=== PATIENT | male | born 1985 | race Caucasian/White ===

== ENCOUNTER 2018-08-07 09:17 | Emergency (ER) | payer OTHER ==
[2018-08-07 09:41] VITALS: BP 133/73; PULSE 91; TEMP 98.6; BMI 29.6
--- NOTE | 2018-08-07 10:25 | PDOC ---
History of Present Illness - General Chief Complaint: Rash Stated Complaint: RASH Time Seen by Provider: 08/07/18 09:45 History Source: Patient, Significant Other Exam Limitations: Language Barrier - History of Present Illness Initial Comments: 08/07/18 10:14 Pt is a 32yo M with no significant PMH presenting today with rash. Pt said that 5 days ago on Thursday he started having fevers high as 101, chills, and body aches. He saw his PMD 2 days ago and was told he had the flu but was outside the treatment window. Rash started on the face on and has since spread down his back and chest to his arms and legs. Rash looks like pimples, is "a little" itchy and "a little" painful. He denies fever, chills, arthralgia, myalgia, headache, neck stiffness, abdominal pain, n/v/d. Says urine is dark and stool is dark. States he had Shingles 2 years ago and has been treated. Has had vaccination when he was younger but is unsure as to which vaccinations he received. PMD: Kaushik PMH: none Meds: none PSH: none Allergies: nkda Past History - Past Medical History Allergies/Adverse Reactions: Allergies Allergy/AdvReac Type Severity Reaction Status Date / Time No Known Allergies Allergy Verified 03/23/18 19:55 Home Medications: Ambulatory Orders Valacyclovir HCl [Valtrex -] 1,000 mg PO TID #21 tablet 08/07/18 COPD: No - Immunization History Immunization Up to Date: Yes - Suicide/Smoking/Psychosocial Hx Smoking History: Never smoked Have you smoked in the past 12 months: No Hx Alcohol Use: No Drug/Substance Use Hx: No Review of Systems - Review of Systems Constitutional: No: Chills, Fever, Weakness HEENTM: No: Eye Pain, Ear Pain, Nose Pain, Nose Congestion, Throat Pain Respiratory: No: Cough, Shortness of Breath Cardiac (ROS): No: Chest Pain, Lightheadedness, Palpitations, Syncope ABD/GI: Yes: See HPI, Tarry Stools. No: Constipated, Diarrhea, Nausea, Rectal Bleeding, Vomiting, Indigestion : Yes: See HPI, Other (dark urine). No: Burning, Dysuria, Flank Pain Musculoskeletal: No: Back Pain, Joint Pain, Muscle Pain, Muscle Weakness Integumentary: Yes: See HPI Neurological: No: Headache, Numbness, Tingling, Tremors, Weakness *Physical Exam - Vital Signs Last Vital Signs Temp Pulse Resp BP Pulse Ox 98.6 F 91 H 16 133/73 100 08/07/18 09:37 1218 09:37 08/07/18 09:37 08/07/18 09:37 08/07/18 09:37 - Physical Exam General Appearance: Yes: Nourished, Appropriately Dressed. No: Apparent Distress HEENT: positive: EOMI, LEELEE, TMs Normal, Pharynx Normal Neck: positive: Trachea midline, Supple. negative: Lymphadenopathy (R), Lymphadenopathy (L) Respiratory/Chest: positive: Lungs Clear, Normal Breath Sounds. negative: Crackles, Rales, Rhonchi, Stridor, Wheezing Cardiovascular: positive: Regular Rhythm, Regular Rate, S1, S2. negative: Edema , JVD, Murmur Vascular Pulses: Carotid (R): 2+, Carotid (L): 2+, Dorsalis-Pedis (R): 2+, Doralis-Pedis (L): 2+ Gastrointestinal/Abdominal: positive: Normal Bowel Sounds. negative: Distended , Guarding, Rebound, Tenderness Rectal Exam: positive: normal rectal tone. negative: melena, hemorrhoids Musculoskeletal: negative: CVA Tenderness Extremity: positive: Normal Capillary Refill Integumentary: positive: Normal Color, Dry, Warm, Swelling, Other (multiple raised erythematous papules not ttp, some have clear vesicles. no excoration lema. ) Neurologic: positive: customer professional II-XII NML intact, Fully Oriented, Alert, Normal Mood/ Affect, Normal Response, Motor Strength 5/5. negative: Sensory Deficit Moderate Sedation - Procedure Monitoring Vital Signs: Procedure Monitoring Vital Signs Temperature 98.6 F 08/07/18 09:37 Pulse Rate 91 H 08/07/18 09:37 Respiratory Rate 16 08/07/18 09:37 Blood Pressure 133/73 08/07/18 09:37 O2 Sat by Pulse Oximetry (%) 100 08/07/18 09:37 ED Treatment Course - LABORATORY CBC & Chemistry Diagram: 08/07/18 10:46 08/07/18 10:40 Medical Decision Making - Medical Decision Making 08/07/18 10:19 Pt is a 32yo M with no significant PMH presenting today with rash. Pt said that 5 days ago on Thursday he started having fevers high as 101, chills, and body aches. He saw his PMD 2 days ago and was told he had the flu but was outside the treatment window. Rash started on the face on and has since spread down his back and chest to his arms and legs. Rash looks like pimples, is "a little" itchy and "a little" painful. He denies fever, chills, arthralgia, myalgia, headache, neck stiffness, abdominal pain, n/v/d. Says urine is dark and stool is dark. States he had Shingles 2 years ago and has been treated. Has had vaccination when he was younger but is unsure as to which vaccinations he received. No one else in the household having similar symptoms Vitals: wnl PE: erythematous 1-3mm lesions some clear vesicles, non tender, raised scattered over face, back, chest, arms, legs. DDx: vzv, rubella, measels, cellulitis, viral exanthem. Pt has history of bilateral shingles. could be immunocompromised. will order HIV study, pt agrees to it. basic labs, ua and stool occult ordered. pt is not toxic appearing, denies symptoms of illness, only has rash. could be simple viral exanthem. 08/07/18 11:56 Las show elevated LFTs and Tbili Laboratory Tests 08/07/18 10:40 Total Bilirubin 1.4 H AST 161 H ALT 216 H UA negative and stool occult negative. HIV pending *DC/Admit/Observation/Transfer Diagnosis at time of Disposition: Rash and nonspecific skin eruption - Discharge Dispostion Disposition: HOME Condition at time of disposition: Good Decision to Admit order: No - Prescriptions Prescriptions: Valacyclovir HCl [Valtrex -] 1,000 mg PO TID #21 tablet - Referrals Referrals: ON STAFF,NOT [Primary Care Provider] - Melanie Jeffrey MD [Non Staff, Medical] - - Patient Instructions Printed Discharge Instructions: DI for Rash Additional Instructions: You were seen here today for a rash. Your tests show that you liver enzymes are high. This can happen after having a viral illness. Please make an appointment with your doctor to make sure the levels are going down. You most likely have a rash that is due to a virus, but you are getting a prescription for a medication that will help if it is due to chickenpox. The medication is called Valtrex (valcyclovir). Take it three times a day for 7 days. Come back to the emergency room if rash gets worse, you develop fever, you have problems breathing, you have abdominal pain, you start vomiting or if any new concerning symptom develops. Thank you - Post Discharge Activity
--- NOTE | 2018-08-07 11:07 | PDOC ---
Attending Attestation - Resident Resident Name: Kami Luna - ED Attending Attestation I have performed the following: I have examined & evaluated the patient, The case was reviewed & discussed with the resident, I agree w/resident's findings & plan, Exceptions are as noted - HPI HPI: 08/07/18 10:47 32yo M with hx shingles presents to the ED with rash. Pt reports red pimple like rash that is painful and itchy, started 3 days ago on face, then progressed down to arms, chest, back, legs. RAsh does not include palms and soles. Pt also reports 5 days ago he had fevers high as 101, chills, and body aches. Pt reports his PMD diagnosed him with the flu but said he was out of the treatment window. Since then, he denies fever, chills, arthralgia, myalgia, headache, neck stiffness, abdominal pain, n/v/d. Pt's reports he took 13 advils (200mg each) when he had his fever 5 days ago and she is concerned it was too much. Pt reports since then his urine is dark and stool is dark. Denies bloody stool. Pt reports he had shingles 3 years ago on both anterior thighs that was treated with medication and resolved. Describes the shingles rash as painful with bubbles that sometimes popped. Denies IVDU, etoh use. States has only had sex with his . Consents to HIV test. Has had vaccination in [facility] when he was younger. - Physicial Exam PE: 08/07/18 11:07 GENERAL: Awake, alert, and fully oriented, in no acute distress. Non toxic appearing EYES: PERRLA, EOMI, sclera anicteric, conjunctiva clear ENT: Nares patent, oropharynx clear without exudates. Moist mucosa NECK: Normal ROM, supple, no lymphadenopathy, JVD, or masses. No evidence of meningismus LUNGS: Breath sounds equal, clear to auscultation bilaterally. No wheezes, and no crackles HEART: Regular rate and rhythm, normal S1 and S2, no murmurs, rubs or gallops ABDOMEN: Soft, nontender, normoactive bowel sounds. No guarding, no rebound. No masses EXTREMITIES: Normal range of motion, no edema. No cords, erythema, or tenderness NEUROLOGICAL: Normal speech, cranial nerves intact, 5/5 strength in all 4 extremities, normal sensation to light touch in all 4 extremities, normal cerebellar exam, normal gait, normal tone SKIN: Head, trunk, arms, buttocks, UE, LE with erythematous papules, some with tiny lisa bud appearance on close inspection? Not in various stages of duration. No evidence of excoriation. - Medical Decision Making 08/07/18 11:12 32yo M hx shingles in multiple dermatomes p/w rash after recent VONDA. Pt is non- toxic appearing with normal vitals. Exam with possible vesicular lesions with no mucosal involvement and not on palms or soles. Given hx of shingles, unlikely to be varicella but in light of possible vesicular lesions will treat as such. Differential also includes viral exanthem. Pt also reporting hx of b/l shingles on LE, as such was offered a HIV test which he consents to. Will also check stool occult and UA given reported hx of dark stools and dark urine. 08/07/18 12:20 Labs with no leukocytosis LFTs mildly bumped ALT>AST as is bili to 1.4 Likely due to recent viral syndrome Pt with no abd pain, N/V Pt to f/u with PMD for rpt LFTs in 2-3 days HIV negative stool occult negative UA negative for infection or reds Will treat with valcyclovir Pt is well appearing, return precautions given I discussed the physical exam findings, ancillary test results and final diagnoses with the patient. I answered all of the patient's questions. The patient was satisfied with the care received and felt comfortable with the discharge plan and treatment plan. The patient will call their primary care physician within 24 hours to arrange follow-up and will return to the Emergency Department with any new, persistent or worsening symptoms.
[2018-08-07 11:21] LABS: BASO % 0.8 % (0-2.0); EOS % 1.1 % (0-4.5); HEMATOCRIT 42.4 % (35.4-49); HEMOGLOBIN 14.5 GM/dL (11.7-16.9); LYMPH % 39.4 % (8-40); MCH 29.5 pg (25.7-33.7); MCHC 34.1 g/dl (32.0-35.9); MEAN CELL VOLUME 86.3 fl (80-96); MEAN PLT VOLUME 9.5 fl (7.5-11.1); NEUT % 50.7 % (42.8-82.8); PLATELET COUNT 110 K/MM3 (134-434); RBC 4.91 M/mm3 (4.00-5.60); RDW 12.2 % (11.9-15.9); WHITE BLOOD COUNT 4.4 K/mm3 (4.0-10.0)
[2018-08-07 11:25] LABS: URINE APPEARANCE CLEAR; URINE BILIRUBIN NEGATIVE (<2.0 mg/dL); URINE COLOR YELLOW; URINE GLUCOSE (UA) NEGATIVE (NEGATIVE); URINE KETONE NEGATIVE (NEGATIVE); URINE LEUK ESTERASE NEGATIVE (NEGATIVE); URINE NITRITE NEGATIVE (NEGATIVE); URINE PROTEIN NEGATIVE (NEGATIVE)
[2018-08-07 11:50] LABS: ALBUMIN 3.9 g/dl (3.4-5.0); ALK PHOS 114 U/L (45-117); ANION GAP 10 MMOL/L (8-16); BILIRUBIN,TOTAL 1.4 mg/dL (0.2-1); BLOOD UREA NITROGEN 18 mg/dL (7-18); CHLORIDE 108 mmol/L (98-107); CO2 23 mmol/L (21-32); GLUCOSE,RANDOM 108 mg/dL (74-106); SGOT/AST 161 U/L (15-37); SGPT/ALT 216 U/L (13-61); SODIUM 141 mmol/L (136-145); TOT PROT 7.1 g/dl (6.4-8.2)
== END 2018-08-07 12:59 | disposition home or self-care (01) ==
LOC: JER 09:17
DX: B01.9 Varicella without complication (principal)
CPT/HCPCS: 36415; 80053; 81003; 82272; 85025; 87389; 99282-25